=== PATIENT | male | born 1950 | race Caucasian/White ===

== ENCOUNTER 2017-03-03 14:11 | Emergency (ER) | payer OTHER ==
[~2017-03-03] VITALS: Ht 180.3 cm; Wt 100.0 kg
[2017-03-03 14:12] VITALS: BP 134/82; PULSE 97; RESP 20; TEMP 97.7; O2SAT 97
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
[2017-03-03] MEDS ORDERED: ATOR10TA15 PO (14:42)
[2017-03-03] MEDS ORDERED: LISI40TA PO (14:42)
[2017-03-03] MEDS ORDERED: METF500T PO (14:42)
[2017-03-03] MEDS ORDERED: SITA50 PO (14:42)
[2017-03-03] MEDS ORDERED: ALLO100T PO (14:42)
[2017-03-03] MEDS ORDERED: MOBI15TA PO (14:43)
[2017-03-03] MEDS ORDERED: ROBA500T PO (14:44)
== END 2017-03-03 15:09 | disposition home or self-care (01) ==
LOC: NEPK 14:11
DX: S46.912A Strain of unspecified muscle, fascia and tendon at shoulder and upper arm level, left arm, initial encounter (principal); E78.00 Pure hypercholesterolemia, unspecified; E11.9 Type 2 diabetes mellitus without complications; Z79.899 Other long term (current) drug therapy; V43.52XA Car driver injured in collision with other type car in traffic accident, initial encounter
CPT/HCPCS: 99283